=== PATIENT | male | born 1995 | race Caucasian/White ===

== ENCOUNTER 2021-03-19 19:51 | Emergency (ER) | payer BC, OTHER ==
[~2021-03-19] VITALS: Ht 182.9 cm; Wt 94.9 kg
[2021-03-19] MEDS ORDERED: LORazepam 2 MG/ML VIAL IV STA ×2 (20:03→20:34)
[2021-03-19] MEDS ORDERED: BOOSTRIX/ADACEL VACCINE (DIPHTH/PERTUSS/ACELL/TETANUS) 0.5ML SYR IM ONE (20:10)
[2021-03-19] MEDS ORDERED: LIDOCAINE 2% W/EPINEPHRINE 20ML VIAL **PRES FREE INJ ONE (20:15)
[2021-03-19] MEDS ORDERED: BACITRACIN OINTMENT 30GM TUBE TOP PRN (20:45)
[2021-03-19] MEDS ORDERED: MORPHINE 2 MG/ML 1ML VIAL (J2270) IV ONE (21:20)
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
[2021-03-19] MEDS ORDERED: ceFAZolin SOD 2 GM in IV 1 EA IV ONE (21:40)
[2021-03-19] MEDS ORDERED: NS 1,000 ML IV SCH (21:45)
[2021-03-19] MEDS ORDERED: ONDANSETRON 4MG/2ML VIAL IV ONE (22:35)
[2021-03-19 22:36] VITALS: BP 120/60
[2021-03-19 22:39] LABS: RSV AMPLIFICATION NEGATIVE (NEGATIVE)
== END 2021-03-19 22:48 | disposition short-term general hospital (02) ==
LOC: M ED 19:51
DX: S06.5X0A Traumatic subdural hemorrhage without loss of consciousness, initial encounter (principal); S02.2XXA Fracture of nasal bones, initial encounter for closed fracture; S02.832A Fracture of medial orbital wall, left side, initial encounter for closed fracture; V86.55XA Driver of 3- or 4- wheeled all-terrain vehicle (ATV) injured in nontraffic accident, initial encounter; Y92.9 Unspecified place or not applicable; Y93.9 Activity, unspecified; Y99.9 Unspecified external cause status
CPT/HCPCS: 70450; 70486; 72125; 87631; 90471; 90715; 96365; 96375; 99285; J0690; J2060; J2270; J2405

== ENCOUNTER → 2022-02-21 | Outpatient (CLI) | payer BC, OTHER ==
[~2022-02-21] MED LIST: PROHANCE 279.3MG/ML 15ML VIAL As Ordered ONE; PROHANCE 279.3MG/ML 5ML VIAL As Ordered ONE
== END ==
LOC: M RAD 09:13
PROVIDERS: ATTEND Orthopaedic Surgery
DX: D16.8 Benign neoplasm of pelvic bones, sacrum and coccyx (principal)
CPT/HCPCS: 72197; A9576

== ENCOUNTER → 2024-04-18 | Outpatient (CLI) | payer BC, OTHER | LOC: M WUC 15:36 | PROVIDERS: ATTEND Physician Assistant | DX: M25.561 Pain in right knee (principal) ==